=== PATIENT | male | born 1950 | race Caucasian/White ===

== ENCOUNTER 2023-01-30 02:13 | Emergency (ER) | payer MEDICARE, SELFPAY ==
[2023-01-30] VITALS (22 sets, daily range): BP systolic 95–133; BP diastolic 70–94; PULSE 59–88; RESP 8–20; TEMP 36.7; O2SAT 93–98
--- NOTE | ~2023-01-30 | XR_ITS ---
XR chest 2V 01/30/2023 02:55 Indication: Nosebleed. Procedure: PA and lateral views of the chest Comparison: No prior studies for comparison. Findings: Heart size normal. No focal air space disease, pulmonary edema, pleural effusion or suspect ed pneumothorax. No acute osseous abnormality. Impression: 1: No acute cardiopulmonary disease. Reviewed, dictated and finalized at location A. Impression: 1: No acute cardiopulmonary disease.
--- NOTE | ~2023-01-30 | CT_ITS ---
EXAMINATION: CT BRAIN W/O DATE: 01/30/2023 02:56 INDICATION: Headache with nose bleed. TECHNIQUE: Computed tomography (CT) of the head was performed without intravenous contrast. The dose- length product was 681.00 mGy-cm. Automated exposure control and iterative reconstruction technique w ere employed. COMPARISON: No prior studies for comparison. FINDINGS: Normal brain parenchymal volume for age. Normal garcia-white differentiation. No acute intrac ranial hemorrhage, infarction, mass or mass effect. There are scattered mild periventricular and subc ortical white matter changes, most likely related to small vessel ischemic disease (microangiopathy). There is a small calcified extra-axial mass left frontal location measuring 6 mm, consistent with a meningioma. No significant mass effect. No ventriculomegaly or midline shift. Midline sagittal images demonstrate a normal corpus callosum, c raniovertebral junction and sella turcica. Basilar cisterns are patent. Small high-density air-fluid level in the right maxillary sinus, consistent with hemorrhage. IMPRESSION: 1. No acute intracranial abnormality. 2: Small high density air-fluid level right maxillary sinus, consistent with hemorrhage. Reviewed, dictated and finalized at location A. IMPRESSION: 1. No acute intracranial abnormality. 2: Small high density air-fluid level right maxillary sinus, consistent with he morrhage.
--- NOTE | 2023-01-30 02:22 | ECG_ITS ---
Measurements Intervals [place] Rate: 66 P: MA: 0 QRS: 34 QRSD: 88 T: 53 QT: 389 QTc: 409 Interpretive Statements ATRIAL FIBRILLATION CANNOT RULE OUT SEPTAL INFARCT, AGE INDETERMINATE BORDERLINE ST-T WAVE ABNORMALITY- HIGH LATERAL LEADS ABNORMAL ECG COMPARED TO ECG 03/22/2019 10:27:19 ATRIAL FIBRILLATION NOW PRESENT ST-T WAVE ABNORMALITY NOW PRESENT Electronically Signed On 01-30-2023 17:29:39 CDT by Riaz Schreiber D.O.
[2023-01-30 02:32] LABS: Basophils Absolute Auto 0.05 K/mm3 (0.00-0.10); Basophils Percent Auto 0.8 % (0.0-1.0); Eosinophils Absolute Auto 0.16 K/mm3 (0.02-0.50); Eosinophils Percent Auto 2.4 % (1.0-6.0); Hemoglobin 13.3 g/dL (12.4-15.3); Immature Granulocyte Absolute 0.02 K/mm3 (0.00-0.00); Immature Granulocyte Percent A 0.3 % (0.0-0.0); Lymphocytes Absolute Auto 3.08 K/mm3 (1.10-4.50); Lymphocytes Percent Auto 46.5 % (18.0-42.0); Mean Corpuscular HGB Conc 34.1 g/dL (32.0-36.0); Mean Corpuscular Hemoglobin 29.6 pg (27.0-31.0); Mean Corpuscular Volume 86.7 fL (78.0-102.0); Monocytes Absolute Auto 0.76 K/mm3 (0.10-0.90); Monocytes Percent Auto 11.5 % (2.0-11.0); Neutrophils Absolute Auto 2.6 K/mm3 (1.7-7.2); Neutrophils Percent Auto 38.5 % (50.0-70.0); Platelet Count Result 272 K/mm3 (150-420); Red Cell Distribution Width 13.3 % (11.6-14.4); White Blood Count 6.6 K/mm3 (4.8-10.8)
--- NOTE | 2023-01-30 02:33 | ED.GENADULT ---
HPI - General Adult General Chief complaint: Unspecified Stated complaint: Nose Bleed Time Seen by Provider: 01/30/23 02:16 Source: patient and EMS Mode of arrival: EMS Limitations: no limitations History of Present Illness HPI narrative: this is a 72-year-old gentleman presents via EMS with a nose bleed, patient woke up with some nose bleed and had a pool of blood that was in his CPAP mask patient felt faint and dizzy with a slight headache, was concerned and called EMS. Patient states that he feels comfortable currently nose bleed has since resolved prior to arrival to the emergency department. Patient denies any chest pain no shortness of breath no fever chills no nausea vomiting no abdominal pain. 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 Onset (ago): hour(s) Location: head and face Severity: moderate Pain Consistency: now resolved Related Data Home Medications Medication Instructions Recorded Confirmed apixaban 5 mg tablet (Eliquis) 5 mg PO DAILY 01/30/23 01/30/23 clonazepam 0.5 mg tablet (Klonopin) 0.5 mg PO PRN 01/30/23 01/30/23 esomeprazole magnesium 20 mg 20 mg PO DAILY 01/30/23 01/30/23 capsule,delayed release (Nexium) fenofibrate nanocrystallized 145 145 mg PO DAILY 01/30/23 01/30/23 mg tablet (Tricor) gabapentin 600 mg tablet 600 mg PO DAILY 01/30/23 01/30/23 (Neurontin) simvastatin 20 mg tablet (Zocor) 20 mg PO DAILY 01/30/23 01/30/23 tamsulosin 0.4 mg capsule (Flomax) 0.4 mg PO DAILY 01/30/23 01/30/23 tramadol 50 mg tablet 50 mg PO PRN 01/30/23 01/30/23 venlafaxine 75 mg capsule,extended 75 mg PO DAILY 01/30/23 01/30/23 release 24 hr (Effexor XR) Allergies Allergy/AdvReac Type Severity Reaction Status Date / Time alcohol Allergy Unknown . Verified 01/13/22 15:30 NSAIDS (Non-Steroidal Allergy Unknown CONFLICT Verified 01/13/22 15:30 Anti-Inflamma WITH OTHER MEDS Review of Systems Review of Systems: All systems reviewed & are unremarkable except as noted in HPI and below [facility] Past Medical History Medical History Atrial fibrillation CAD (coronary artery disease) HTN (hypertension) Exam Const: General: cooperative, healthy appearing, comfortable, no acute distress, well developed, alert, awake and Physically active Orientation/consciousness: oriented to person, oriented to place and oriented to time Limitations: no limitations HENMT: Head: normal to inspection Face/Nose/Sinus: Other nasal findings present ( dry crusted blood external and internal nose) Face and sinus: other ( for crusted blood along the nasal cavity) Mouth: Yes Normal oral and palatal mucosa present Throat: posterior oropharynx normal Eyes: General: appearance normal, both eyes and all related structures Visual Wang: normal visual wang by confrontation Alignment and Position: alignment normal Periorbital: periorbital findings normal Eyelids: eyelids normal Conjunctivae: conjunctivae normal Sclera: sclerae normal Pupils: Equal, round and reactive pupils present Neck: Neck: normal visual inspection, full ROM and no lymphadenopathy Chest: Chest palpation & inspection: normal inspection of the chest and normal palpation of entire chest wall Resp: Effort & Inspection: normal respiratory effort and able to speak in complete sentences Auscultation: clear to auscultation bilaterally Cardio: Jugular venous distension: no JVD Palpation: normal PMI Rate: regular rate Rhythm: abnormal rhythm GI: Inspection: normal to inspection Percussion: Yes normal to percussion Auscultation: normal bowel sounds : General: Yes bimanual renal exam normal bilaterally Urinary Catheter: Urinary Catheter: patent and draining Back/Spine/Pelvis: Back: no CVA tenderness Cervical Spine: normal cervical lordosis and cervic
[2023-01-30] MEDS: SODIUM CHLORIDE 0.9% IV 1,000 ML 999 ML IV CONT (02:36)
[2023-01-30 02:55] LABS: INR 1.1; Partial Thromboplastin Time 24.8 SEC (23.90-30.70); Prothrombin Time 11.6 Seconds (9.50-12.10)
[2023-01-30 02:57] LABS: Lactic Acid Reflex 1.4 mmol/L (0.4-2.0)
[2023-01-30 03:02] LABS: Alanine Aminotransferase 23 U/L (16-63); Albumin Level 3.6 g/dL (3.4-5.0); Alkaline Phosphatase 41 U/L (46-116); Anion Gap 8 mmol/L (8-16); Aspartate Amino Transferase 22 U/L (15-37); Bilirubin,Total 0.4 mg/dL (0.00-1.00); Blood Urea Nitrogen 25 mg/dL (7-18); Calcium 8.9 mg/dL (8.5-10.1); Carbon Dioxide 32 mmol/L (21-32); Chloride 103 mmol/L (98-108); Estimated CRCL calculation 56 ml/min; Estimated Glomerular Filt Rate > 60; Glucose 110 mg/dL (70-99); Osmolality Calculated 301 mOsm/kg (285-295); Potassium 3.6 mmol/L (3.5-5.1); Sodium 143 mmol/L (136-145); Total Protein 6.7 g/dL (6.4-8.2)
[2023-01-30 03:05] LABS: NT Pro B Type Natriuretic Pept 808 pg/mL (0-125)
[2023-01-30 03:06] LABS: CRP < 0.5 mg/dL (0.0-0.9)
[2023-01-30 03:06] LABS: Troponin I 6.8 ng/L (0.00-60.4)
== END 2023-01-30 06:10 | disposition home or self-care (01) ==
PROVIDERS: Emergency Provider Emergency Medicine; PCP Internal Medicine
DX: R04.0 Epistaxis (principal); I25.10 Atherosclerotic heart disease of native coronary artery without angina pectoris; I10 Essential (primary) hypertension; I48.91 Unspecified atrial fibrillation; Z79.01 Long term (current) use of anticoagulants; Z86.73 Personal history of transient ischemic attack (TIA), and cerebral infarction without residual deficits; Z79.891 Long term (current) use of opiate analgesic
CPT/HCPCS: 36415; 70450; 71046; 80053; 83605; 83880; 84484; 85025; 85610; 85730; 86140; 86850; 86900; 86901; 93005; 96360; 99284; J7030